=== PATIENT | male | born 1945 | race Native Hawaiian/Other Pacific Islander ===

== ENCOUNTER 2017-10-28 07:19 | Day surgery (SDC) | payer MEDICARE, OTHER ==
[2016-01-25 10:07] VITALS: BMI 23.8
[2017-10-28] MEDS ORDERED: Midazolam 2 MG/2 ML VIAL ONE (08:55)
[2017-10-28] MEDS ORDERED: Iodixanol 320 MG/ML 100 ML BOTTLE IV ONE (09:20)
[2017-10-28] MEDS ORDERED: Sodium Chloride 0.9% 500 ML IV SCH (10:00)
--- NOTE | 2017-10-28 11:37 | CARDCATH ---
PROCEDURE DATE: 10/28/2017 PROCEDURES: 1. Left heart catheterization and coronary angiogram. 2. Abdominal aortogram and bilateral lower extremity arterial runoff. 3. Radiological supervision and radiological interpretation of the cardiac catheterization and peripheral angiogram. REFERRING PHYSICIAN: Rosetta Wilson MD. PERFORMING PHYSICIAN: Lee Beltran MD. CLINICAL INDICATIONS: 1. Angina. 2. Claudication. 3. Hypertension. 4. Hyperlipidemia. PROCEDURE: After informed consent, the patient was prepped and draped in the usual sterile fashion. A 2% lidocaine was given in the left groin for local anesthesia. Using micropuncture technique, 6-Filipino sheath was introduced into left common femoral artery. JL4 6-Filipino diagnostic catheter engaged into left main coronary artery. Contrast injected and left coronary angiogram was performed. JR4 6-Filipino diagnostic catheter crossed into left ventricle across the aortic valve. LV end diastolic pressure measured. Contrast injected. LV angiogram was performed. Catheter was pulled back across the aortic valve and the gradient was measured. The same JR4 diagnostic catheter engaged into right coronary artery. Contrast injected and right coronary angiogram was performed. A 5-Filipino Omni Flush diagnostic catheter positioned in distal abdominal aorta. Using the power injector, contrast injected and abdominal aortogram and bilateral lower extremity runoff were performed. The patient tolerated the procedure well. FINDINGS OF CARDIAC CATHETERIZATION: 1. Left main coronary artery is patent. 2. Ostial LAD has a 30% concentric stenosis. Proximal LAD is ectatic. Mid and distal LAD has diffuse narrowing. Diagonal branches are patent. 3. Left circumflex is a codominant system. Proximal left circumflex is patent. Obtuse marginal branches are patent. PDA has 85% proximal stenosis. 4. Right coronary artery is small and codominant. Proximal to mid 90-95% two concentric lesions noted. 5. LV ejection fraction is approximately 70%. EDP is 17. No wall motion abnormalities noted. There is no gradient across the aortic valve. FINDINGS OF THE PERIPHERAL ANGIOGRAM: The abdominal aorta is patent. Bilateral iliac arteries are patent. Bilateral common femoral arteries are patent. There is a stent visible in the right external iliac artery, which is patent. CONCLUSION: 1. Two-vessel coronary artery disease as described above. 2. Normal left ventricular systolic function. 3. Patent abdominal aorta and bilateral peripheral arteries. Patent prior stent in the right external iliac artery. Lee Beltran MD
[2017-10-28 11:58] VITALS: RESP 16; O2SAT 97
[2017-10-28 13:14] VITALS: BP 155/79; PULSE 50; TEMP 98.1
== END 2017-10-28 13:02 | disposition home or self-care (01) ==
LOC: C.CATHLAB 07:19
PROVIDERS: ATTEND Internal Medicine Cardiovascular Disease
DX: I25.119 Atherosclerotic heart disease of native coronary artery with unspecified angina pectoris (principal); I73.9 Peripheral vascular disease, unspecified; E78.5 Hyperlipidemia, unspecified; I10 Essential (primary) hypertension
CPT/HCPCS: 93458; 94770; C1758; C1760; C1769; C1887; J1644; J2250; J3010; J7040; Q9967